=== PATIENT | female | born 2000 | race African-American/Black ===

== ENCOUNTER 2024-02-09 09:28 | Emergency (ER) | payer SELFPAY ==
[2024-02-09 10:10] LABS: Absolute Basophils 0.1 K/uL (0-0.5); Absolute Eosinophils 0.5 K/uL (0-0.5); Absolute Lymphocytes (CBC) 1.6 K/uL (0.7-4.9); Absolute Monocytes 0.3 K/uL (0.1-1.3); Absolute Neutrophil 3.2 K/uL (1.8-8.0); Basophils % 1.1 % (0-1.3); Eosinophils % 9.3 % (0-4.4); Hematocrit 37.4 % (36.0-45.0); Hemoglobin 12.2 g/dL (12.0-15.0); MCH 25.9 pg (27.0-35.0); MCHC 32.5 g/dL (32.0-36.0); MCV 79.7 fL (80-100); MPV 6.8 fL (7.6-11.3); Monocytes % 5.1 % (3.3-12.3); Neutrophils % 56.5 % (41.7-73.7); Nucleated Red Blood Cells % 0.2 % (0-0); Platelets 536 thou/uL (152-406); RBC Red Blood Cell Count 4.69 M/uL (3.86-4.86); Red Cell Distribution Width 15.1 % (12.1-15.2)
[2024-02-09 10:14] LABS: Specific Gravity 1.022 (1.005-1.030)
[2024-02-09 10:15] LABS: Specific Gravity 1.022 (1.005-1.030); Sqamous Epithelial <5 /HPF (None Seen); Urine Bacteria None Seen /HPF (<20); Urine Bilirubin NEGATIVE (Negative); Urine Blood 3+ (OVER) (Negative); Urine Clarity Turbid (Clear); Urine Color Light-Yellow (Yellow); Urine Culture Reflex Order NOT NEEDED; Urine Glucose NEGATIVE (Negative); Urine Ketones NEGATIVE (Negative); Urine Microscopic Reflex YN ORDER UMIC; Urine Nitrite NEGATIVE (Negative); Urine Protein TRACE (Negative); Urine RBC 21-50 /HPF (None Seen); Urine Urobilinogen Normal (Normal); Urine WBC <5 /HPF (<5); Urine pH 6.5 (5.0-7.0)
[2024-02-09 10:35] LABS: Anion Gap 4.9 mEq/L (5.0-15.0); BUN Blood Urea Nitrogen 10 mg/dL (7-18); Bicarbonate 29 mEq/L (21-32); Glomerular Filtration Rate 106 ml/min (=/>90); Glucose Level 100 mg/dL (74-106); Potassium 3.9 mEq/L (3.5-5.1); Sodium Level 137 mEq/L (136-145)
[2024-02-09 10:36] LABS: HCG, Quantitative < 1 mIU/mL (1-3)
--- NOTE | 2024-02-09 11:47 | ER ---
Nurse's Notes [facility] Name: Mei Riddle Age: 23 yrs Sex: Female : 2000 Arrival Date: 02/09/2024 Time: 09:28 Bed 13 Private MD: Diagnosis: Probable completed miscarriage, vaginal bleeding Presentation: 02/08 09:43 Chief complaint: Patient states: "1 month ago, I got a positive test and then mb9 a negative one. Today I started cramping and passing a blood clot. I'm not sure if my period is acting up or if I'm .". Coronavirus screen: At this time, the client does not indicate any symptoms associated with coronavirus-19. Ebola Screen: No symptoms or risks identified at this time. Initial Sepsis Screen: Does the patient meet any 2 criteria? HR > 90 bpm. Does the patient have a suspected source of infection? No. Patient's initial sepsis screen is negative. Risk Assessment: Do you want to hurt yourself or someone else? Patient reports no desire to harm self or others. Onset of symptoms was February 09, 2024. 09:43 Method Of Arrival: Ambulatory mb9 09:43 Acuity: DOMINGO 3 mb9 Triage Assessment: 09:45 General: Appears in no apparent distress. Behavior is cooperative. Pain: Complains of mb9 pain in pelvis Pain does not radiate. Quality of pain is described as crampy, Pain began suddenly, Is continuous. EENT: No signs and/or symptoms were reported regarding the EENT system. Neuro: Booker Agitation-Sedation Scale (RASS): 0 - Alert and Calm Level of Consciousness is awake, alert, obeys commands, Oriented to person, place, time, situation, Appropriate for age. Cardiovascular: Patient's skin is warm and dry. Respiratory: Airway is patent Respiratory effort is even, unlabored, Respiratory pattern is regular, symmetrical. GI: Abdomen is round non-distended, Abd is soft Abdomen is tender to palpation in suprapubic area. : Reports vaginal bleeding that is bright red, with clots, light flow. Derm: Skin is pink, warm \\T\\ dry. Musculoskeletal: Range of motion: intact in all extremities. 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 - Infectious Disease History:: Denies. - Social history:: Smoking status: Patient denies any tobacco usage or history of. Screenin:46 [facility] ED Fall Risk Assessment (Adult) History of falling in the last 3 months, mb9 including since admission No falls in past 3 months (0 pts) Confusion or Disorientation No (0 pts) Intoxicated or Sedated No (0 pts) Impaired Gait No (0 pts) Mobility Assist Device Used No (0 pt) Altered Elimination No (0 pt) Score/Fall Risk Level 0 - 2 = Low Risk Oriented to surroundings, Maintained a safe environment, Educated pt \\T\\ family on fall prevention, incl call for assistance when getting out of bed. Abuse screen: Denies threats or abuse. Nutritional screening: No deficits noted. Tuberculosis screening: No symptoms or risk factors identified. Vital Signs: 09:43 BP 140 / 89; Pulse 98; Resp 18; Temp 98; Pulse Ox 100% ; Weight 90.72 kg; Height 5 ft. mb9 0 in. ; 10:58 BP 136 / 84; Pulse 87; Resp 16; Pulse Ox 98% ; dd2 11:52 BP 131 / 81; Pulse 81; Resp 16; Pulse Ox 98% ; dd2 09:43 Body Mass Index 39.06 (90.72 kg, 152.4 cm) mb9 ED Course: 09:31 Patient arrived in ED. im 09:32 Ld Diaz MD is Attending Physician. sp3 09:36 COLUMBA LOPEZ, TIAN is Primary Nurse. dd2 09:44 Triage completed. mb9 09:45 Arm band placed on. mb9 09:46 Bed in low position. Call light in reach. Side rails up X 1. Provided Education on: mb9 press call light if needing anything. Client placed on continuous cardiac and pulse oximetry monitoring. NIBP monitoring applied. 09:47 No provider procedures requiring assistance completed. mb9 10:00 Abo/rh Typing Sent. dd2 10:00 CBC with Diff Sent. dd2 10:00 Basic Metabolic Panel Sent. dd2 10:00 Test, Urine Sent. dd2 10:00 Quantitative Hcg Sent. dd2 10:00 Urinalysis w/ reflexes Sent. dd2 10:01 Initial lab(s) drawn, by me, sent to lab. Inserted saline lock: 20 gauge in left dd2 antecubital area, using aseptic technique. Blood collected. Flushed with 10 mL NS. 10:46 US Transvaginal Ob In Process Unspecified. EDMS 11:52 IV discontinued, intact, bleeding controlled, No redness/swelling at site. Pressure dd2 dressing applied. Administered Medications: No medications were administered Medication: 09:46 VIS not applicable for this client. mb9 Outcome: 11:46 Discharge ordered by . sp3 11:52 Discharged to home ambulatory, dd2 11:52 Condition: stable 11:52 Discharge instructions given to patient, Instructed on discharge instructions, follow up and referral plans. Demonstrated understanding of instructions, follow-up care, 11:53 Patient left the ED. dd2 Signatures: Dispatcher [employer] EDMS Ld Diaz MD MD sp3 Rosamaria Mancini, RN RN mb9 Hannah Shaver DIANA, RN RN dd2
--- NOTE | 2024-02-09 11:47 | EDPHYS ---
Physician Documentation [facility] Name: Mei Riddle Age: 23 yrs Sex: Female : 2000 Arrival Date: 02/09/2024 Time: 09:28 Bed 13 Private MD: ED Physician Ld Diaz HPI: 02/08 09:45 This 23 yrs old Black Female presents to ER via Ambulatory with complaints of Vaginal sp3 Bleeding, Abdominal Pain, Possible . 09:45 23-year-old female with a history of hypertension now G2, if now sp3 presents to the ED with chief complaint vaginal bleeding after positive test several weeks ago. She denies any abdominal pain, back pain, syncope, near syncope, bleeding anywhere else, headache, fever, chest pain, shortness of breath, vomiting, diarrhea or any other signs or symptoms on ROS at this time. 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 - Infectious Disease History:: Denies. - Social history:: Smoking status: Patient denies any tobacco usage or history of. ROS: 09:46 Constitutional: Negative for fever, chills, and weight loss, Eyes: Negative for injury, sp3 pain, redness, and discharge, Cardiovascular: Negative for chest pain, palpitations, and edema, Respiratory: Negative for shortness of breath, cough, wheezing, and pleuritic chest pain, Abdomen/GI: Negative for abdominal pain, nausea, vomiting, diarrhea, and constipation, Back: Negative for injury and pain, MS/Extremity: Negative for injury and deformity, Skin: Negative for injury, rash, and discoloration, Neuro: Negative for headache, weakness, numbness, tingling, and seizure, Psych: Negative for depression, anxiety, suicide ideation, homicidal ideation, and hallucinations, Allergy/Immunology: Negative for hives, rash, and allergies, Endocrine: Negative for neck swelling, polydipsia, polyuria, polyphagia, and marked weight changes, Hematologic/Lymphatic: Negative for swollen nodes, abnormal bleeding, and unusual bruising, 09:46 All other systems are negative, Exam: 09:47 Constitutional: This is a well developed, well nourished patient who is awake, alert, sp3 and in no acute distress. Head/Face: Normocephalic, atraumatic. Eyes: Pupils equal round and reactive to light, extra-ocular motions intact. Lids and lashes normal. Conjunctiva and sclera are non-icteric and not injected. Cornea within normal limits. Periorbital areas with no swelling, redness, or edema. Neck: Trachea midline, no thyromegaly or masses palpated, and no cervical lymphadenopathy. Supple, full range of motion without nuchal rigidity, or vertebral point tenderness. No Meningismus. Chest/axilla: Normal chest wall appearance and motion. Nontender with no deformity. No lesions are appreciated. Cardiovascular: Regular rate and rhythm with a normal S1 and S2. No gallops, murmurs, or rubs. Normal PMI, no JVD. No pulse deficits. Respiratory: Lungs have equal breath sounds bilaterally, clear to auscultation and percussion. No rales, rhonchi or wheezes noted. No increased work of breathing, no retractions or nasal flaring. Abdomen/GI: Soft, non-tender, with normal bowel sounds. No distension or tympany. No guarding or rebound. No evidence of tenderness throughout. Back: No spinal tenderness. No costovertebral tenderness. Full range of motion. Skin: Warm, dry with normal turgor. Normal color with no rashes, no lesions, and no evidence of cellulitis. MS/ Extremity: Pulses equal, no cyanosis. Neurovascular intact. Full, normal range of motion. Neuro: Awake and alert, GCS 15, oriented to person, place, time, and situation. Cranial nerves II-XII grossly intact. Motor strength 5/5 in all extremities. Sensory grossly intact. Cerebellar exam normal. Normal gait. Psych: Awake, alert, with orientation to person, place and time. Behavior, mood, and affect are within normal limits. 09:47 : Vaginal bleeding consistent with menses in terms of flow. Abdomen benign exam., Vital Signs: 09:43 BP 140 / 89; Pulse 98; Resp 18; Temp 98; Pulse Ox 100% ; Weight 90.72 kg; Height 5 ft. mb9 0 in. ; 10:58 BP 136 / 84; Pulse 87; Resp 16; Pulse Ox 98% ; dd2 11:52 BP 131 / 81; Pulse 81; Resp 16; Pulse Ox 98% ; dd2 09:43 Body Mass Index 39.06 (90.72 kg, 152.4 cm) mb9 MDM: 09:32 Patient medically screened. sp3 09:47 Data reviewed: vital signs, nurses notes, lab test result(s), radiologic studies. ED sp3 course: 23-year-old female G2, P1 with versus miscarriage. Workup will include ultrasound transvaginal, laboratory values including type and Rh, urinalysis and general supportive care. Current vital signs are normal. Patient is in no acute distress. Disposition pending workup and patient course.. 11:46 ED course: Workup negative and ultrasound is normal. Good ovarian flow bilaterally. sp3 Patient is not currently . We will safely discharge home at this time.. 02/08 09:39 Order name: Abo/rh Typing; Complete Time: 10:41 sp3 02/08 09:39 Order name: Basic Metabolic Panel; Complete Time: 10:41 sp3 02/08 09:39 Order name: CBC with Diff; Complete Time: 10:41 sp3 02/08 09:39 Order name: Test, Urine; Complete Time: 10:41 sp3 02/08 09:39 Order name: Quantitative Hcg; Complete Time: 10:41 sp3 02/08 09:39 Order name: Urinalysis w/ reflexes; Complete Time: 10:41 sp3 02/08 09:39 Order name: US Transvaginal Ob sp3 02/08 09:39 Order name: IV Saline Lock; Complete Time: 10:00 sp3 02/08 09:39 Order name: Labs collected and sent; Complete Time: 10:00 sp3 02/08 09:39 Order name: NPO; Complete Time: 09:47 sp3 Administered Medications: No medications were administered Disposition Summary: 02/09/24 11:46 Discharge Ordered Notes: Location: Home sp3 Condition: Stable sp3 Diagnosis - Probable completed miscarriage, vaginal bleeding sp3 Followup: sp3 - With: Private Physician - When: Upon discharge from the Emergency Department - Reason: Continuance of care Discharge Instructions: - Discharge Summary Sheet sp3 - Miscarriage sp3 Forms: - Medication Reconciliation Form sp3 - Antibiotic Education sp3 - Prescription Opioid Use sp3 - Patient Portal Instructions sp3 - Leadership Thank You Letter sp3 Signatures: Dispatcher [employer] EDLd Castro MD MD sp3 Rosamaria Mancini RN RN mb9 Corrections: (The following items were deleted from the chart) 09:39 09:39 ABO/RH TYPING+BB.LAB.BRZ ordered. EDMS EDMS 09:39 09:39 BASIC METABOLIC PANEL+C.LAB.BRZ ordered. EDMS EDMS 09:39 09:39 CBC+H.LAB.BRZ ordered. EDMS EDMS 09:39 09:39 Test, Urine+UC.LAB.BRZ ordered. EDMS EDMS 09:39 09:39 QUANTITATIVE HCG+C.LAB.BRZ ordered. EDMS EDMS 09:39 09:39 Urinalysis+U.LAB.BRZ ordered. EDMS EDMS
[2024-02-09 12:05] VITALS: TEMP 98
--- NOTE | 2024-02-09 12:06 | RAD REPORT ---
EXAM DESCRIPTION: US - Transvaginal OB - 02/09/2024 11:36 am CLINICAL HISTORY: VAGINAL BLEEDING COMPARISON: No comparisons TECHNIQUE: Sonographic grayscale and color flow images of the pelvis, obtained through transvaginal approach. FINDINGS: No intrauterine is identified. Uterus is normal in shape with normal myometrial echotexture, measuring 7.1 cm in length. Endometrial stripe measures 2 mm in thickness. No focal myometrial abnormality. Trace fluid seen along the cervical canal. . Right ovary measures 2.1 x 2.0 x 1.6 cm. Left ovary measures 2.9 x 2.2 x 2.1 cm. No suspicious adnexa l masses. Small left ovarian complex cyst, measuring 1.5 cm with suggestion of fluid fluid level, may relate to partial rupture or hemorrhagic content. Maintained vascular flow to both ovaries. No free fluid. IMPRESSION: 1. No evidence of intrauterine . No focal myometrial abnormality. 2. Small complex cyst of the left ovary, possibly a recently ruptured follicle.
[2024-02-09 12:07] VITALS: O2SAT 98
[2024-02-09 12:09] VITALS: BP 131/81
== END 2024-02-09 11:53 | disposition home or self-care (01) ==
LOC: ER 09:28
DX: N93.9 Abnormal uterine and vaginal bleeding, unspecified (principal)
CPT/HCPCS: 36415; 76817; 80048; 81001; 81025; 84702; 85025; 86900; 86901; 99284

== ENCOUNTER 2024-06-09 13:10 | Emergency (ER) | payer SELFPAY ==
[2024-06-09 14:40] LABS: SARS-CoV-2 Antigen CONTROL BLUE LINE VIS/BG OK; SARS-CoV-2 Antigen Rapid Res Negative (Negative)
[2024-06-09] MEDS ORDERED: HYDROCODONE/CHLORPHEN 5 ML/OSYR ONE (15:00)
--- NOTE | 2024-06-09 15:56 | ER ---
Nurse's Notes [facility] Name: Mei Riddle Age: 23 yrs Sex: Female : 2000 Arrival Date: 06/09/2024 Time: 13:10 Bed 11 Private MD: Diagnosis: Respiratory syncytial virus as the cause of diseases classified elsewhere Presentation: 06/09 13:57 Chief complaint: Patient states: COUGH, SUBJECTIVE FEVER AND SORE THROAT ONSET cm10 YESTERDAY. Coronavirus screen: Client denies travel out of the [place] in the last 14 days. Ebola Screen: Patient denies travel to an Ebola-affected area in the 21 days before illness onset. No symptoms or risks identified at this time. Initial Sepsis Screen: Does the patient meet any 2 criteria? HR > 90 bpm. Does the patient have a suspected source of infection? No. Patient's initial sepsis screen is negative. Risk Assessment: Do you want to hurt yourself or someone else? Patient reports no desire to harm self or others. Onset of symptoms was June 08, 2024. 13:57 Method Of Arrival: Ambulatory cm10 13:57 Acuity: DOMINGO 4 cm10 Triage Assessment: 13:59 General: Appears in no apparent distress. uncomfortable, Behavior is calm, cooperative. cm10 Neuro: No deficits noted. Level of Consciousness is awake, alert, obeys commands, Oriented to person, place, time, situation, Appropriate for age. 14:05 Respiratory: Onset: The symptoms/episode began/occurred gradually, the patient has mild rs5 shortness of breath. Historical: - Allergies: 13:59 No Known Allergies; cm10 - PMHx: 13:59 Hypertensive disorder; cm10 - Immunization history:: Adult Immunizations up to date. - Infectious Disease History:: Denies. - Social history:: Smoking status: Patient denies any tobacco usage or history of. Screenin:07 [facility] ED Fall Risk Assessment (Adult) History of falling in the last 3 months, rs5 including since admission No falls in past 3 months (0 pts) Confusion or Disorientation No (0 pts) Intoxicated or Sedated No (0 pts) Impaired Gait No (0 pts) Mobility Assist Device Used No (0 pt) Altered Elimination No (0 pt) Score/Fall Risk Level 0 - 2 = Low Risk Oriented to surroundings, Maintained a safe environment. Abuse screen: Denies threats or abuse. Nutritional screening: No deficits noted. Tuberculosis screening: No symptoms or risk factors identified. Assessment: 14:05 General: Appears in no apparent distress. uncomfortable, Behavior is calm, cooperative. rs5 Pain: Denies pain. Neuro: Level of Consciousness is awake, alert, obeys commands, Oriented to person, place, time, situation. Cardiovascular: Patient's skin is warm and dry. Rhythm is regular. Respiratory: Airway is patent Respiratory effort is even, unlabored, Respiratory pattern is regular, symmetrical. Respiratory: Reports shortness of breath cough that is Breath sounds are clear. GI: Abdomen is round non-distended. : No signs and/or symptoms were reported regarding the genitourinary system. EENT: No signs and/or symptoms were reported regarding the EENT system. Derm: Skin is intact, Skin is pink, warm \T\ dry. Musculoskeletal: Range of motion: intact in all extremities. 15:10 Reassessment: Patient and/or family updated on plan of care and expected duration. Pain rs5 level reassessed. Patient is alert, oriented x 3, equal unlabored respirations, skin warm/dry/pink. 16:05 Reassessment: Patient and/or family updated on plan of care and expected duration. Pain rs5 level reassessed. Patient is alert, oriented x 3, equal unlabored respirations, skin warm/dry/pink. Vital Signs: 13:57 BP 134 / 89; Pulse 107; Resp 15; Temp 96.9(O); Pulse Ox 98% ; Weight 95.25 kg; Height 5 cm10 ft. 0 in. ; Pain 0/10; 16:01 BP 132 / 84; Pulse 80; Resp 17; Temp 97.8(O); Pulse Ox 99% ; rs5 13:57 Body Mass Index 41.01 (95.25 kg, 152.4 cm) cm10 13:57 Pain Scale: Adult cm10 ED Course: 13:12 Patient arrived in ED. mr 13:16 Celso Canales PA is PHCP. cp 13:16 Kathya Yepez MD is Attending Physician. cp 13:59 Triage completed. cm10 13:59 Arm band placed on right wrist. Patient placed in waiting room. cm10 14:05 Influenza Screen (a \T\ B) Sent. cm10 14:05 RSV Sent. cm10 14:05 SARS RAPID Sent. cm10 14:05 Strep Sent. cm10 14:06 COVID swab sent to lab. Flu and/or RSV swab sent to lab. Strep swab sent to lab. cm10 14:07 Patient has correct armband on for positive identification. Placed in gown. Bed in low rs5 position. Call light in reach. Side rails up X2. 14:07 No provider procedures requiring assistance completed. rs5 14:53 Bradley Bunch, RN is Primary Nurse. rs5 14:58 XRAY Chest Pa And Lat (2 Views) In Process Unspecified. EDMS 16:05 Provided Education on: discharge instructions . rs5 16:10 Patient did not have IV access during this emergency room visit. rs5 Administered Medications: 14:05 Drug: Tussionex Pennkinetic ER PO Suspension 5 ml PO once Route: PO; rs5 15:10 Follow up: Response: No adverse reaction; pt reports coughing has decreased rs5 Medication: 16:01 VIS not applicable for this client. rs5 Intake: Outcome: 15:56 Discharge ordered by . cp 16:10 Discharged to home ambulatory, rs5 16:10 Condition: stable rs5 16:10 Discharge instructions given to patient, family, Instructed on discharge instructions, follow up and referral plans. Demonstrated understanding of instructions, follow-up care, 16:13 Patient left the ED. rs5 Signatures: Dispatcher [employer] EDPR MimsRosamaria wiggins, Reg Reg mr Celso Canales PA PA Bradley Carter, RN RN rs5 Radha Conde RN RN 10
--- NOTE | 2024-06-09 15:56 | EDPHYS ---
Physician Documentation [facility] Name: Mei Riddle Age: 23 yrs Sex: Female : 2000 Arrival Date: 06/09/2024 Time: 13:10 Bed 11 Private MD: ED Physician Kathya Yepez HPI: 06/09 14:05 This 23 yrs old Black Female presents to ER via Ambulatory with complaints of Breathing cp Difficulty, Flu Symptoms. 14:05 The patient has shortness of breath with light activity. cp 14:05 The patient or guardian reports cough, with productive sputum. Onset: The cp symptoms/episode began/occurred 2 day(s) ago. 14:05 Associated signs and symptoms: Pertinent positives: chest pain, productive cough, cp Pertinent negatives: dizziness, fever. Severity of symptoms: in the emergency department the symptoms are unchanged despite home interventions. Historical: - Allergies: 13:59 No Known Allergies; cm10 - PMHx: 13:59 Hypertensive disorder; cm10 - Immunization history:: Adult Immunizations up to date. - Infectious Disease History:: Denies. - Social history:: Smoking status: Patient denies any tobacco usage or history of. ROS: 14:10 Constitutional: Negative for body aches, fever, poor PO intake, cp 14:10 Eyes: Negative for injury, pain, redness, and discharge, cp 14:10 ENT: Positive for sore throat, Negative for drainage from ear(s), ear pain, difficulty swallowing, difficulty handling secretions, 14:10 Cardiovascular: Positive for chest pain, with cough, 14:10 Respiratory: Positive for cough, shortness of breath, on exertion. Negative for wheezing, 14:10 Abdomen/GI: Negative for vomiting, diarrhea, constipation, 14:10 Neuro: Negative for altered mental status, syncope, weakness, cp 14:10 All other systems are negative, Exam: 14:15 Constitutional: The patient appears in no acute distress, alert, awake, non-toxic, well cp developed, well nourished, obese, 14:15 Head/Face: Normocephalic, atraumatic. cp 14:15 Eyes: Periorbital structures: appear normal, Conjunctiva: normal, no exudate, no injection, Sclera: no appreciated abnormality, Lids and lashes: appear normal, bilaterally, 14:15 ENT: External ear(s): are unremarkable, Nose: is normal, Mouth: Lips: moist, Oral mucosa: moist, Posterior pharynx: Airway: no evidence of obstruction, patent, 14:15 Chest/axilla: Inspection: normal, 14:15 Cardiovascular: Rate: tachycardic, Rhythm: regular, 14:15 Respiratory: the patient does not display signs of respiratory distress, Respirations: normal, no use of accessory muscles, no retractions, labored breathing, is not present, Breath sounds: bronchial sounds, that are mild, are heard diffusely, decreased breath sounds, are not appreciated, stridor, is not appreciated, wheezing: is not appreciated, 14:15 Abdomen/GI: Inspection: abdomen appears normal, Palpation: abdomen is soft and non-tender, in all quadrants, 14:15 Back: pain, is absent, 14:15 Neuro: Orientation: to person, place \T\ time. Mentation: is normal, Vital Signs: 13:57 BP 134 / 89; Pulse 107; Resp 15; Temp 96.9(O); Pulse Ox 98% ; Weight 95.25 kg; Height 5 cm10 ft. 0 in. ; Pain 0/10; 16:01 BP 132 / 84; Pulse 80; Resp 17; Temp 97.8(O); Pulse Ox 99% ; rs5 13:57 Body Mass Index 41.01 (95.25 kg, 152.4 cm) cm10 13:57 Pain Scale: Adult cm10 MDM: 14:06 Medical Screening Exam initiated cp 15:00 Differential diagnosis: Bronchitis pneumonia, influenza, RSV, COVID-19. cp 15:23 Data reviewed: vital signs, nurses notes, lab test result(s), radiologic studies, plain cp films. I considered the following discharge prescriptions or medication management in the emergency department Medications were administered in the Emergency Department. See MAR. Independent interpretation of the following test(s) in the Emergency Department X-Ray: My interpretation is chest xray negative for focal pneumonia. 15:55 Response to treatment: the patient's symptoms have mildly improved after treatment, and cp as a result, I will discharge patient. 06/09 14:00 Order name: Strep cp 06/09 15:22 Interpretation: Reviewed. 06/09 14:00 Order name: SARS RAPID; Complete Time: 15:22 06/09 15:22 Interpretation: Reviewed. 06/09 14:00 Order name: RSV; Complete Time: 15:22 cp 06/09 15:22 Interpretation: Reviewed. 06/09 14:00 Order name: Influenza Screen (a \T\ B); Complete Time: 15:22 cp 06/09 15:22 Interpretation: Reviewed. 06/09 14:43 Order name: Throat Culture EDMS 06/09 14:00 Order name: XRAY Chest Pa And Lat (2 Views); Complete Time: 16:07 06/09 16:07 Interpretation: Report reviewed. cp Administered Medications: 14:05 Drug: Tussionex Pennkinetic ER PO Suspension 5 ml PO once Route: PO; rs5 15:10 Follow up: Response: No adverse reaction; pt reports coughing has decreased rs5 Disposition: 17:24 Co-signature as Attending Physician, Kathya Yepez MD I reviewed the patient's care sd2 provided by the Advanced Practice Provider and agree with the diagnosis and treatment plan. Disposition Summary: 06/09/24 15:56 Discharge Ordered Notes: Location: Home cp Problem: new cp Symptoms: have improved cp Condition: Stable cp Diagnosis - Respiratory syncytial virus as the cause of diseases classified elsewhere cp Followup: cp - With: Private Physician - When: 2 - 3 days - Reason: Worsening of condition Discharge Instructions: - Discharge Summary Sheet cp - Respiratory Syncytial Virus Infection, Adult cp Forms: - Work release form cp - Medication Reconciliation Form cp - Antibiotic Education cp - Prescription Opioid Use cp - Patient Portal Instructions cp - Leadership Thank You Letter cp Prescriptions: - Bromfed DM 2-30-10 mg/5 mL Oral syrup - administer 10 milliliter ORAL route every 6 hours as needed for cold symptoms; cp 240 milliliter; Refills: 0, Product Selection Permitted Signatures: Dispatcher [employer] EDMS Celso Canales PA PA cp Kathya Yepez MD MD sd2 Bradley Bunch RN RN rs5 Radha Conde RN RN cm10 Corrections: (The following items were deleted from the chart) 14:01 14:01 Chest Pa And Lat (2 Views)+RAD.RAD.BRZ ordered. EDMS EDMS
--- NOTE | 2024-06-09 16:00 | RAD REPORT ---
EXAMINATION: TWO VIEW CHEST XR CLINICAL INDICATION: Cough;SOB TECHNIQUE: 2 views of the chest was performed. COMPARISON: No prior exam. FINDINGS: The lungs are well inflated and clear. The heart is normal in size. No displaced fractures evident. IMPRESSION: No acute or significant abnormalities.
[2024-06-09 16:18] VITALS: BP 132/84; TEMP 97.8; O2SAT 99
== END 2024-06-09 16:13 | disposition home or self-care (01) ==
LOC: ER 13:10
DX: R06.02 Shortness of breath (principal); B97.4 Respiratory syncytial virus as the cause of diseases classified elsewhere; R05.9 Cough, unspecified; Z11.52 Encounter for screening for COVID-19
CPT/HCPCS: 36415; 71046; 87070; 87081; 87804; 87807; 87811; 99283

== ENCOUNTER 2024-09-29 23:52 | Emergency (ER) | payer SELFPAY ==
--- NOTE | 2024-09-30 01:09 | EDPHYS ---
Physician Documentation [facility] Name: Mei Riddle Age: 24 yrs Sex: Female : 2000 Arrival Date: 09/29/2024 Time: 23:52 Bed IW6 Private MD: ED Physician Celso Tavarez HPI: 09/30 00:10 This 24 yrs old Black Female presents to ER via Ambulatory with complaints of Sore cp Throat. 00:10 The patient presents with sore throat. The patient describes throat pain as constant. cp Onset: The symptoms/episode began/occurred 1 week(s) ago. 00:10 Severity of symptoms: in the emergency department the symptoms are unchanged, despite cp home interventions. 00:10 Associated signs and symptoms: Pertinent positives: cough. 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 - Infectious Disease History:: Denies. - Social history:: Smoking status: Patient denies any tobacco usage or history of. Patient uses alcohol, occasionally. Patient/guardian denies using street drugs. ROS: 00:15 Constitutional: Negative for fever, poor PO intake, cp 00:15 Eyes: Negative for injury, pain, redness, and discharge, cp 00:15 ENT: Positive for sore throat, Negative for drainage from ear(s), ear pain, difficulty swallowing, difficulty handling secretions, 00:15 Respiratory: Positive for cough, Negative for shortness of breath, wheezing, 00:15 Abdomen/GI: Negative for vomiting, diarrhea, constipation, 00:15 Skin: Negative for rash, 00:15 Neuro: Negative for altered mental status, dizziness, headache, weakness, 00:15 All other systems are negative, Exam: 00:20 Constitutional: The patient appears in no acute distress, alert, awake, non-toxic, well cp developed, well nourished, obese, 00:20 Head/Face: Normocephalic, atraumatic. cp 00:20 Eyes: Periorbital structures: appear normal, Conjunctiva: normal, no exudate, no injection, Lids and lashes: appear normal, bilaterally, 00:20 ENT: External ear(s): are unremarkable, Ear canal(s): are normal, clear, TM's: dullness, bilaterally, Nose: is normal, Mouth: Lips: moist, Oral mucosa: moist, Posterior pharynx: Airway: no evidence of obstruction, patent, Tonsils: with erythema, no exudate, Uvula: midline, erythema, that is moderate, exudate, is not appreciated, 00:20 Neck: ROM/movement: Meningeal signs: are not present, nuchal rigidity, is not appreciated, 00:20 Chest/axilla: Inspection: normal, 00:20 Cardiovascular: Rate: normal, 00:20 Respiratory: the patient does not display signs of respiratory distress, Respirations: normal, no use of accessory muscles, no retractions, labored breathing, is not present, Breath sounds: decreased breath sounds, are not appreciated, stridor, is not appreciated, wheezing: is not appreciated, 00:20 Abdomen/GI: Exam negative for discomfort, distension, guarding, Inspection: abdomen appears normal, 00:20 Skin: no rash present. Vital Signs: 00:08 BP 148 / 97; Pulse 89; Resp 18; Temp 97.2; Pulse Ox 98% ; Weight 90.72 kg; Height 5 ft. br2 0 in. ; Pain 10/10; 00:08 Body Mass Index 39.06 (90.72 kg, 152.4 cm) br2 00:08 Pain Scale: Adult br2 MDM: 00:08 Medical Screening Exam initiated cp 01:08 Data reviewed: vital signs, nurses notes, lab test result(s), and as a result, I will cp discharge patient. 01:08 Differential diagnosis: apthous stomatitis, gingivostomatitis, group A strep cp tonsillitis, influenza, roge's angina, peritonsillar abscess pharyngitis, retropharyngeal abcess. I considered the following discharge prescriptions or medication management in the emergency department Medications were administered in the Emergency Department. See MAR. Counseling: I had a detailed discussion with the patient and/or guardian regarding the historical points, exam findings, and any diagnostic results supporting the discharge/admit diagnosis, lab results, to return to the emergency department if symptoms worsen or persist or if there are any questions or concerns that arise at home. Response to treatment: the patient's symptoms have mildly improved after treatment, and as a result, I will discharge patient. 09/30 00:15 Order name: Group A Streptococcus Rapid cp 09/30 01:09 Order name: Throat Culture EDMS Administered Medications: 01:36 Drug: GI Cocktail without - (Maalox PO 30 ml, Lidocaine Mucous Membrane 2 % 15 br2 ml) PO once Route: PO; 01:37 Follow up: Response: Medication administered at discharge. br2 01:36 Drug: Ibuprofen PO 800 mg PO once Route: PO; br2 01:37 Follow up: Response: Medication administered at discharge. br2 Disposition Summary: 09/30/24 01:08 Discharge Ordered Notes: Location: Home cp Problem: new cp Symptoms: have improved cp Condition: Stable cp Diagnosis - Acute pharyngitis, unspecified cp Followup: cp - With: Private Physician - When: 2 - 3 days - Reason: Worsening of condition Discharge Instructions: - Discharge Summary Sheet cp - Pharyngitis cp - Sore Throat cp Forms: - Medication Reconciliation Form cp - Antibiotic Education cp - Prescription Opioid Use cp - Patient Portal Instructions cp - Leadership Thank You Letter cp Prescriptions: - Amoxicillin 875 mg Oral Tablet - take 1 tablet ORAL route every 12 hours for 10 days; 20 tablet; Refills: 0, cp Product Selection Permitted - Ibuprofen 800 mg Oral Tablet - take 1 tablet ORAL route every 8 hours As needed take with food; 30 tablet; cp Refills: 0, Product Selection Permitted Addendum: 10/01/2024 08:02 Co-signature as Attending Physician, Celso Tavarez MD I agree with the assessment and c bass plan of care. Signatures: Dispatcher [employer] EDCelso Maynard MD MD cha Page, Corey, PA PA cp Garcia, Cindy, RN RN Doris Milner RN RN br2 Corrections: (The following items were deleted from the chart) 09/30 00:12 00:11 PMHx: Hypertensive disorder; br2 br2 00:15 00:15 Group A Streptococcus Rapid Sc+I.LAB.BRZ ordered. EDWV EDMS
--- NOTE | 2024-09-30 01:09 | ER ---
Nurse's Notes [facility] Name: Mei Riddle Age: 24 yrs Sex: Female : 2000 Arrival Date: 09/29/2024 Time: 23:52 Bed IW6 Private MD: Diagnosis: Acute pharyngitis, unspecified Presentation: 09/30 00:08 Chief complaint: Patient states: SORE THROAT FOR 1 WEEK ...PAIN IS WORSE TODAY. br2 Coronavirus screen: Client denies travel out of the [place] in the last 14 days. Ebola Screen: Patient denies exposure to infectious person. Initial Sepsis Screen: Does the patient meet any 2 criteria? No. Patient's initial sepsis screen is negative. Does the patient have a suspected source of infection? No. Patient's initial sepsis screen is negative. Risk Assessment: Do you want to hurt yourself or someone else? Patient reports no desire to harm self or others. Onset of symptoms was September 23, 2024. 00:08 Method Of Arrival: Ambulatory br2 00:08 Acuity: DOMINGO 4 br2 Triage Assessment: 00:11 General: Appears uncomfortable, Behavior is calm, cooperative. Pain: Complains of pain br2 in neck Pain does not radiate. Pain currently is 10 out of 10 on a pain scale. EENT: Throat has enlarged tonsils. 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 - Infectious Disease History:: Denies. - Social history:: Smoking status: Patient denies any tobacco usage or history of. Patient uses alcohol, occasionally. Patient/guardian denies using street drugs. Assessment: 01:11 Reassessment: SEE TRIAGE ASSESSMENT. br2 Vital Signs: 00:08 BP 148 / 97; Pulse 89; Resp 18; Temp 97.2; Pulse Ox 98% ; Weight 90.72 kg; Height 5 ft. br2 0 in. ; Pain 10/10; 00:08 Body Mass Index 39.06 (90.72 kg, 152.4 cm) br2 00:08 Pain Scale: Adult br2 ED Course: 09/29 23:55 Patient arrived in ED. al6 23:57 Celso Canales PA is PHCP. cp 23:57 Celso Tavarez MD is Attending Physician. cp 09/30 00:11 Triage completed. br2 01:36 Doris Browning, RN is Primary Nurse. br2 Administered Medications: 01:36 Drug: GI Cocktail without - (Maalox PO 30 ml, Lidocaine Mucous Membrane 2 % 15 br2 ml) PO once Route: PO; 01:37 Follow up: Response: Medication administered at discharge. br2 01:36 Drug: Ibuprofen PO 800 mg PO once Route: PO; br2 01:37 Follow up: Response: Medication administered at discharge. br2 Outcome: 01:08 Discharge ordered by . cp 01:38 Patient left the ED. br2 Signatures: Celso Canales PA PA cp Doris Browning, TIAN RN br2 Jennifer Carmona al6 Corrections: (The following items were deleted from the chart) 00:12 00:11 PMHx: Hypertensive disorder; br2 br2
[2024-09-30] MEDS ORDERED: IBUPROFEN 400 MG TAB ONE (01:21)
[2024-09-30] MEDS ORDERED: MAGNES/ALUMIN/SIMET 30ML UCUP ONE (01:21)
[2024-09-30] MEDS ORDERED: LIDOCAINE VISCOUS 2% 10ML ORAL SOLN ONE (01:21)
[2024-09-30 01:46] VITALS: BP 148/97; TEMP 97.2; O2SAT 98
== END 2024-09-30 01:38 | disposition home or self-care (01) ==
LOC: ER 23:52
DX: J02.9 Acute pharyngitis, unspecified (principal); R05.9 Cough, unspecified
CPT/HCPCS: 36415; 87070

== ENCOUNTER 2025-03-03 19:37 | Emergency (ER) | payer SELFPAY ==
[2025-03-03] MEDS ORDERED: IPRATROPIUM BROM 0.5MG/2.5ML ONE (20:35)
[2025-03-03] MEDS ORDERED: METHYLPREDNISOLONE 125 MG INJ ONE (20:35)
[2025-03-03] MEDS ORDERED: ALBUTEROL 2.5 MG/3 ML NEB SOL ONE (20:35)
[2025-03-03] MEDS ORDERED: CETIRIZINE HCL 5 MG TABLET ONE (20:36)
[2025-03-03] MEDS ORDERED: FAMOTIDINE 20 MG TAB ONE (20:36)
[2025-03-03] MEDS ORDERED: predniSONE 20 MG TAB ONE (20:36)
[2025-03-03 21:11] LABS: Sqamous Epithelial <5 /HPF (None Seen); Urine Culture Reflex Order NOT NEEDED
[2025-03-03 21:12] LABS: Urine Yeast (Budding) Trace /HPF (None Seen)
--- NOTE | 2025-03-03 21:14 | RAD REPORT ---
EXAM: Chest Single View HISTORY: 24 years Female SOB COMPARISON: 06/09/2024 FINDINGS: LUNGS/PLEURA: The lungs are clear. No pleural effusions or pneumothorax. No pulmonary edema. CARDIAC/MEDIASTINUM: The cardiac silhouette is within normal limits. UPPER ABDOMEN: No significant abnormality. BONES: No acute abnormality. LINES/TUBES/OTHER: N/A IMPRESSION: No evidence of acute cardiopulmonary disease.
[2025-03-03 21:48] LABS: Urine Microscopic Reflex YN ORDER UMIC
--- NOTE | 2025-03-03 23:39 | EDPHYS ---
Physician Documentation [facility] Name: Mei Riddle Age: 24 yrs Sex: Female : 2000 Arrival Date: 03/03/2025 Time: 19:37 Bed 11 Private MD: ED Physician Mayank Blanca HPI: 03/03 20:30 This 24 yrs old Black Female presents to ER via Ambulatory with complaints of Hives, cp Breathing Difficulty. 20:30 The patient's rash thought to be caused by an unknown cause. The rash is located on the cp body diffusely. The rash can be described as itchy. 20:30 Onset: The symptoms/episode began/occurred yesterday. Associated signs and symptoms: cp Pertinent positives: difficulty breathing, itching, nasal congestion, Pertinent negatives: fever, Pain. Severity of symptoms: in the emergency department the symptoms are unchanged despite home interventions. 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 - Infectious Disease History:: Denies. - Social history:: Smoking status: Patient denies any tobacco usage or history of. ROS: 20:35 Constitutional: Negative for fever, cp 20:35 Eyes: Negative for injury, pain, redness, and discharge, cp 20:35 ENT: Positive for nasal congestion, Negative for drainage from ear(s), ear pain, sore throat, difficulty swallowing, difficulty handling secretions, 20:35 Cardiovascular: Negative for chest pain, 20:35 Respiratory: Positive for shortness of breath, wheezing, 20:35 Abdomen/GI: Negative for abdominal pain, vomiting, diarrhea, constipation, 20:35 Skin: Positive for rash, diffusely, 20:35 Neuro: Negative for altered mental status, dizziness, headache, numbness, weakness, cp 20:35 All other systems are negative, cp Exam: 20:40 Constitutional: The patient appears in no acute distress, alert, awake, cp non-diaphoretic, non-toxic, well developed, well nourished, obese, 20:40 Head/Face: Normocephalic, atraumatic. cp 20:40 Eyes: Periorbital structures: appear normal, Conjunctiva: normal, no exudate, no injection, Sclera: no appreciated abnormality, Lids and lashes: appear normal, bilaterally, 20:40 ENT: External ear(s): are unremarkable, Nose: is normal, Mouth: Lips: moist, Oral mucosa: pink and intact, moist, Posterior pharynx: Airway: no evidence of obstruction, patent, swelling, is not appreciated, erythema, is not appreciated, exudate, is not appreciated, 20:40 Neck: ROM/movement: is normal, is supple, without pain, no range of motions limitations, 20:40 Chest/axilla: Inspection: normal, 20:40 Cardiovascular: Rate: tachycardic, Rhythm: regular, 20:40 Respiratory: the patient does not display signs of respiratory distress, Respirations: normal, no use of accessory muscles, no retractions, labored breathing, is not present, Breath sounds: stridor, is not appreciated, + upper airway congestion. wheezing: that is mild, is heard diffusely, 20:40 Abdomen/GI: Inspection: abdomen appears normal, Palpation: abdomen is soft and non-tender, in all quadrants, 20:40 Back: pain, is absent, ROM is normal, 20:40 Skin: rash a moderate rash is noted, consistent with urticaria, and is diffusely located, 20:40 Neuro: Orientation: to person, place \T\ time. Mentation: is normal, Vital Signs: 20:00 BP 149 / 85; Pulse 108; Resp 20 S; Temp 97.6; Pulse Ox 100% on R/A; Weight 99.79 kg; ha1 Height 5 ft. 0 in. ; 20:58 BP 153 / 89; Pulse 87; Resp 16; Pulse Ox 99% on R/A; Weight 97.52 kg; Height 5 ft. 0 tb4 in. ; Pain 0/10; 22:00 BP 149 / 84; Pulse 77; Resp 19; Pulse Ox 100% on R/A; Pain 0/10; tb4 23:00 BP 148 / 77; Pulse 82; Resp 19; Pulse Ox 100% ; Pain 0/10; tb4 20:58 Body Mass Index 41.99 (97.52 kg, 152.4 cm) tb4 20:58 Pain Scale: Adult tb4 22:00 Pain Scale: Adult tb4 23:00 Pain Scale: Adult tb4 MDM: 20:19 Medical Screening Exam initiated cp 21:00 Differential diagnosis: urticaria, anaphylaxis, angioedema. cp 23:37 Data reviewed: vital signs, nurses notes, lab test result(s), radiologic studies, plain cp films, and as a result, I will discharge patient. 03/03 20:21 Order name: UA Rfx Chadd Cult if indicated; Complete Time: 23:17 cp 03/03 23:17 Interpretation: Normal except: [facility] Turbid; UNIT 2+; BYST Trace. cp 03/03 20:41 Order name: Test, Urine; Complete Time: 23:17 cp 03/03 20:42 Order name: XRAY Chest (1 view); Complete Time: 23:17 cp Administered Medications: 20:54 Drug: Ipratropium Inhalation Aerosol 0.5 mg Inhalation once Route: Inhalation; tb4 21:27 Follow up: Response: No adverse reaction tb4 20:54 Drug: predniSONE PO 40 mg PO once Route: PO; tb4 21:27 Follow up: Response: No adverse reaction tb4 20:57 Drug: ZyrTEC - Cetirizine PO 10 mg PO once Route: PO; tb4 21:28 Follow up: Response: No adverse reaction tb4 20:57 Drug: MethylPREDNISolone Sodium Succinate IM 125 mg IM once Route: IM; Site: left tb4 gluteus; 21:28 Follow up: Response: No adverse reaction tb4 20:57 Drug: Famotidine PO 20 mg PO once Route: PO; tb4 21:28 Follow up: Response: No adverse reaction tb4 20:57 Drug: Albuterol Inhalation 2.5 mg Inhalation once Route: Inhalation; tb4 21:28 Follow up: Response: No adverse reaction tb4 Disposition: 03/04 20:06 Co-signature as Attending Physician, Mayank Blanca DO I reviewed the patient's care tt7 provided by the Advanced Practice Provider and agree with the diagnosis and treatment plan. Disposition Summary: 03/03/25 23:38 Discharge Ordered Notes: Location: Home cp Problem: new cp Symptoms: have improved cp Condition: Stable cp Diagnosis - Urticaria, unspecified cp - Wheezing cp Followup: cp - With: Private Physician - When: 2 - 3 days - Reason: Worsening of condition Discharge Instructions: - Discharge Summary Sheet cp - Hives cp - Shortness of Breath, Adult cp Forms: - Medication Reconciliation Form cp - Antibiotic Education cp - Prescription Opioid Use cp - Patient Portal Instructions cp - Leadership Thank You Letter cp Prescriptions: - Flonase Allergy Relief 50 mcg/actuation Nasal spray, suspension - spray 1 spray INTRANASAL route daily administer into each nostril; 1 unit; cp Refills: 0, Product Selection Permitted - albuterol sulfate 90 mcg/actuation Inhalation HFA Aerosol Inhaler - inhale 1 puff INHALATION route every 4-6 hours; 1 unit; Refills: 0, Product cp Selection Permitted - Prednisone 20 mg Oral Tablet - take 3 tablets ORAL route once daily for 5 days; 15 tablet; Refills: 0, Product cp Selection Permitted - Zyrtec 10 mg Oral Tablet - take 1 tablet ORAL route once daily As needed; 20 tablet; Refills: 0, Product cp Selection Permitted Signatures: Dispatcher [employer] EDMS Celso Canales, ABBIE PAVandaC Nohemy Dodd, RN RN ha1 Yakelin Wong RN RN tb4 Mayank Blanca, DO tt7 Corrections: (The following items were deleted from the chart) 03/03 20:21 20:21 UA Rfx Chadd Cult if indicated+U.LAB.BRZ ordered. EDMS EDMS 20:42 20:21 TEST, SERUM+SC.LAB.BRZ ordered. EDMS EDMS
--- NOTE | 2025-03-03 23:39 | ER ---
Nurse's Notes [facility] Name: Mei Riddle Age: 24 yrs Sex: Female : 2000 Arrival Date: 03/03/2025 Time: 19:37 Bed 11 Private MD: Diagnosis: Urticaria, unspecified;Wheezing Presentation: 03/03 20:00 Chief complaint: Patient states: NASAL CONGESTION, COUGH, AND ITCHINESS ALL OVER BODY. ha1 20:00 Coronavirus screen: Client denies travel out of the [place] in the last 14 days. Ebola ha1 Screen: No symptoms or risks identified at this time. Onset: The symptoms/episode began/occurred 2 day(s) ago. Initial Sepsis Screen: Does the patient meet any 2 criteria? No. Patient's initial sepsis screen is negative. Does the patient have a suspected source of infection? No. Patient's initial sepsis screen is negative. Risk Assessment: Do you want to hurt yourself or someone else? Patient reports no desire to harm self or others. Onset of symptoms was March 03, 2025. 20:00 Method Of Arrival: Ambulatory ha1 20:00 Acuity: DOMINGO 4 ha1 23:55 Anaphylaxis evaluation, the patient reports or I have noted the following symptoms tb4 which indicate a significant risk of anaphylaxis: no signs or symptoms of anaphylaxis were noted no signs or symptoms of anaphylaxis were noted. Triage Assessment: 20:09 General: Appears uncomfortable, Behavior is cooperative. Pain: Denies pain. Neuro: ha1 Level of Consciousness is awake, alert, obeys commands, Oriented to person, place, time, situation. Cardiovascular: Patient's skin is warm and dry. Respiratory: Airway is patent Respiratory effort is even, unlabored, Respiratory pattern is regular, symmetrical. Derm: Rash noted that is itchy, red, on ALL OVER BODY. 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 - Infectious Disease History:: Denies. - Social history:: Smoking status: Patient denies any tobacco usage or history of. Screenin:58 [facility] ED Fall Risk Assessment (Adult) History of falling in the last 3 months, tb4 including since admission No falls in past 3 months (0 pts) Confusion or Disorientation No (0 pts) Intoxicated or Sedated No (0 pts) Impaired Gait No (0 pts) Mobility Assist Device Used No (0 pt) Altered Elimination No (0 pt) Score/Fall Risk Level 0 - 2 = Low Risk Maintained a safe environment. Abuse screen: Denies threats or abuse. Denies injuries from another. Nutritional screening: No deficits noted. Tuberculosis screening: No symptoms or risk factors identified. Assessment: 20:58 General: Appears in no apparent distress. Behavior is calm, cooperative. Pain: Denies tb4 pain. Neuro: Level of Consciousness is awake, alert, obeys commands, Oriented to person, place, time, situation, Moves all extremities. Full function Gait is steady, Speech is normal, Facial symmetry appears normal. Respiratory: Airway is patent Respiratory effort is even, unlabored, Respiratory pattern is regular, symmetrical, Breath sounds are clear bilaterally. GI: No signs and/or symptoms were reported involving the gastrointestinal system. : No signs and/or symptoms were reported regarding the genitourinary system. EENT: No signs and/or symptoms were reported regarding the EENT system. Derm: No signs and/or symptoms reported regarding the dermatologic system. Skin is intact, is healthy with good turgor, Skin is dry, Skin is normal, Rash noted that is raised, on chest area Reports itching. Musculoskeletal: No signs and/or symptoms reported regarding the musculoskeletal system. Circulation, motion, and sensation intact. Range of motion: intact in all extremities. 03/04 00:01 Reassessment: Patient is alert, oriented x 3, equal unlabored respirations, skin tb4 warm/dry/pink. Patient states feeling better. Patient states symptoms have improved. Vital Signs: 03/03 20:00 BP 149 / 85; Pulse 108; Resp 20 S; Temp 97.6; Pulse Ox 100% on R/A; Weight 99.79 kg; ha1 Height 5 ft. 0 in. ; 20:58 BP 153 / 89; Pulse 87; Resp 16; Pulse Ox 99% on R/A; Weight 97.52 kg; Height 5 ft. 0 tb4 in. ; Pain 0/10; 22:00 BP 149 / 84; Pulse 77; Resp 19; Pulse Ox 100% on R/A; Pain 0/10; tb4 23:00 BP 148 / 77; Pulse 82; Resp 19; Pulse Ox 100% ; Pain 0/10; tb4 20:58 Body Mass Index 41.99 (97.52 kg, 152.4 cm) tb4 20:58 Pain Scale: Adult tb4 22:00 Pain Scale: Adult tb4 23:00 Pain Scale: Adult tb4 ED Course: 19:38 Patient arrived in ED. mr 19:50 Celso Canales PA-C is PHCP. cp 19:50 Mayank Blanca DO is Attending Physician. cp 20:09 Triage completed. ha1 20:54 Test, Urine Sent. tb4 20:57 UA Rfx Chadd Cult if indicated Sent. tb4 20:58 Urine collected: clean catch specimen, clear, X-ray(s) taken. tb4 20:58 Patient has correct armband on for positive identification. Bed in low position. Call tb4 light in reach. Client placed on continuous cardiac and pulse oximetry monitoring. NIBP monitoring applied. Door closed. 20:59 XRAY Chest (1 view) In Process Unspecified. EDMS 23:54 No provider procedures requiring assistance completed. Patient did not have IV access tb4 during this emergency room visit. 23:55 Arm band placed on right wrist. tb4 23:55 Provided Education on: Take medication as prescribed. tb4 Administered Medications: 20:54 Drug: Ipratropium Inhalation Aerosol 0.5 mg Inhalation once Route: Inhalation; tb4 21:27 Follow up: Response: No adverse reaction tb4 20:54 Drug: predniSONE PO 40 mg PO once Route: PO; tb4 21:27 Follow up: Response: No adverse reaction tb4 20:57 Drug: ZyrTEC - Cetirizine PO 10 mg PO once Route: PO; tb4 21:28 Follow up: Response: No adverse reaction tb4 20:57 Drug: MethylPREDNISolone Sodium Succinate IM 125 mg IM once Route: IM; Site: left tb4 gluteus; 21:28 Follow up: Response: No adverse reaction tb4 20:57 Drug: Famotidine PO 20 mg PO once Route: PO; tb4 21:28 Follow up: Response: No adverse reaction tb4 20:57 Drug: Albuterol Inhalation 2.5 mg Inhalation once Route: Inhalation; tb4 21:28 Follow up: Response: No adverse reaction tb4 Medication: 20:58 VIS not applicable for this client. tb4 Outcome: 23:38 Discharge ordered by . padmini 03/04 00:01 Discharged to home ambulatory, tb4 00:01 Condition: stable tb4 00:01 Discharge instructions given to patient, Instructed on discharge instructions, follow up and referral plans. Demonstrated understanding of instructions, follow-up care, medications, Prescriptions given X 4, 00:02 Patient left the ED. tb4 Signatures: Dispatcher [employer] EDUT Rosamaria Mims, Kar Reg mr Celso Canales, PA-C PA-C Nohemy Dodd, RN RN ha1 Yakelin Wong, RN RN tb4
[2025-03-04 00:36] VITALS: TEMP 97.6
[2025-03-04 00:40] VITALS: O2SAT 100
[2025-03-04 00:41] VITALS: BP 148/77
== END 2025-03-04 00:02 | disposition home or self-care (01) ==
LOC: ER 19:37
DX: L50.9 Urticaria, unspecified (principal); R06.2 Wheezing
CPT/HCPCS: 71045; 81001; 81025; 96372; 99285; J2919; J7512; J7613; J7644